=== PATIENT | male | born 1975 | race Two or more races ===

== ENCOUNTER 2023-01-08 00:04 | Emergency (ER) | payer OTHER ==
[~2023-01-08] VITALS: Ht 167.6 cm; Wt 72.6 kg
[2023-01-08] MEDS ORDERED: LIPITOR40 M1 PO (00:54)
[2023-01-08] MEDS ORDERED: ZETIA10 MG (00:55)
[2023-01-08] MEDS ORDERED: KETO10TA2 PO (06:13)
[2023-01-08] MEDS ORDERED: NORFLEX100MG PO (06:13)
== END 2023-01-08 06:17 ==
LOC: ER 00:04
DX: S43.401A Unspecified sprain of right shoulder joint, initial encounter (principal); X58.XXXA Exposure to other specified factors, initial encounter; Y93.9 Activity, unspecified; Y92.9 Unspecified place or not applicable; Y99.9 Unspecified external cause status